=== PATIENT | female | born 1970 | race Caucasian/White ===

== ENCOUNTER 2017-05-12 11:56 | Emergency (ER) | payer SELFPAY ==
[~2017-05-12] VITALS: Ht 154.9 cm; Wt 108.4 kg
[~2017-05-12 11:56] MED LIST: ALPRAZOLAM0.25 MG PO; AMOXICILLIN500 M2 PO; ANAPROX DS550 MG PO; ATIVAN1 MG PO; AUGMENTIN 875 M1 TAB PO; BACTRIM DS 8001 TA1 PO; CIPRODEX 0.3%-7.5 ML OT; CIPROFLOXACIN500 MG PO; CLARITIN10 MG PO; CORTISPORIN 1%-10 M1 OT; EXEMESTANE25 M2 PO; FLAGYL500 MG PO; HYDROCODONE BIT1 T11 PO; LEXAPRO10 MG PO; MOTRIN800 MG PO; PENICILLIN VK500 MG PO; PEPCID20 MG PO; PERCOCET 325 MG1 TA2 PO; Peridex 473 ML473 ML PO; TRAMADOL HCL50 MG PO; TYLENOL WITH CO1 TA1 PO; ULTRAM50 MG PO; VICODIN 5/500 505 MG PO; ZITHROMAX Z PA250 MG PO; ZOFRAN ODT4 MG SL; ZYRTEC10 MG PO
[2017-05-12] MEDS ORDERED: AMOXICILLIN500 M2 PO (12:59)
[2017-05-12] MEDS ORDERED: NAPROSYN500 MG PO (12:59)
== END 2017-05-12 13:07 | disposition home or self-care (01) ==
LOC: ED 11:56
DX: K08.89 Other specified disorders of teeth and supporting structures (principal); K02.9 Dental caries, unspecified; Z90.89 Acquired absence of other organs; Z79.899 Other long term (current) drug therapy

== ENCOUNTER 2018-01-14 08:21 | Emergency (ER) | payer OTHER ==
[~2018-01-14] VITALS: Ht 154.9 cm; Wt 94.3 kg
[~2018-01-14 08:21] MED LIST changes: +NAPROSYN500 MG PO
[2018-01-14] MEDS ORDERED: PROZAC20 MG PO (08:26)
[2018-01-14] MEDS ORDERED: KEFLEX500 M1 PO (08:46)
== END 2018-01-14 08:49 | disposition home or self-care (01) ==
LOC: ED 08:21
DX: L03.012 Cellulitis of left finger (principal); Z79.899 Other long term (current) drug therapy; Z98.890 Other specified postprocedural states

== ENCOUNTER → 2021-06-26 | Outpatient (CLI) | payer OTHER ==
[~2021-06-26] MED LIST changes: +KEFLEX500 M1 PO; +PROZAC20 MG PO
== END | disposition home or self-care (01) ==
LOC: MAMMO 09:39
PROVIDERS: ATTEND Internal Medicine
DX: Z51.11 Encounter for antineoplastic chemotherapy (principal); C50.411 Malignant neoplasm of upper-outer quadrant of right female breast; D70.2 Other drug-induced agranulocytosis; F32.9 Major depressive disorder, single episode, unspecified

== ENCOUNTER → 2022-06-30 | Outpatient (CLI) | payer OTHER | END | disposition home or self-care (01) | LOC: MAMMO 06-29 09:00 | PROVIDERS: ATTEND Internal Medicine | DX: Z51.11 Encounter for antineoplastic chemotherapy (principal); R92.8 Other abnormal and inconclusive findings on diagnostic imaging of breast; R92.1 Mammographic calcification found on diagnostic imaging of breast; C50.411 Malignant neoplasm of upper-outer quadrant of right female breast; D70.2 Other drug-induced agranulocytosis; F32.9 Major depressive disorder, single episode, unspecified; Z78.0 Asymptomatic menopausal state ==

== ENCOUNTER 2022-07-23 18:02 | Emergency (ER) | payer OTHER ==
[~2022-07-23] VITALS: Ht 154.9 cm; Wt 109.8 kg
[2022-07-23] MEDS ORDERED: VIBRAMYCIN100 MG PO (20:29)
[2022-07-23] MEDS ORDERED: NAPROSYN500 MG PO (20:33)
== END 2022-07-23 20:42 | disposition home or self-care (01) ==
LOC: ED 18:02
DX: L03.113 Cellulitis of right upper limb (principal); F41.9 Anxiety disorder, unspecified; Z98.51 Tubal ligation status; Z90.11 Acquired absence of right breast and nipple; Z98.890 Other specified postprocedural states

== ENCOUNTER → 2022-07-31 | Outpatient (CLI) | payer OTHER ==
[~2022-07-31] MED LIST changes: +VIBRAMYCIN100 MG PO
== END | disposition home or self-care (01) ==
LOC: US 10:32
PROVIDERS: ATTEND Nurse Practitioner
DX: M79.89 Other specified soft tissue disorders (principal); L03.113 Cellulitis of right upper limb